=== PATIENT | male | born 1980 | race Caucasian/White ===

== ENCOUNTER 2017-02-07 03:43 | Inpatient (IN) | payer BC ==
--- NOTE | ~2017-02-07 | OP ---
Record Of Operation [facility] [address] [place]. [address] NAME: ASIA SIMONS : 78 STATUS : ADM Csaey PAT#: [id number] AGE: 36 ADM/REG DATE : 02/07/17 MR#: [id number] REPORT SERV DATE: 02/07/17 DICTATED BY: NATHAN LEON DATE: 02/07/17 REPORT STATUS : Draft TRANSCRIBED BY: MODL DATE: 02/07/17 DATE OF PROCEDURE: PREPROCEDURE DIAGNOSIS: Bleeding J-pouch. POSTPROCEDURE DIAGNOSIS: Bleeding from the revision anastomosis at the proximal afferent limb of the J-pouch. PROCEDURE: Flexible sigmoidoscopy with hemostasis using 3 clips and 1.5 mL of epinephrine injection. PROCEDURE IN DETAIL: The patient was taken to the endoscopy suite, positioned in the left lateral decubitus position. Informed consent was obtained followed by IV sedation delivered by AUTOMATIC MAINTAINER. Digital rectal exam was performed. Normal sphincter tone. No stenosis. The adult colonoscope was navigated without difficulty into the J-pouch lumen, which was full of clots and was irrigated. Most of the clots and dark blood were visualized in the distal aspect of the previous J-pouch. The scope was then navigated above to where the revision is located and here on the anastomosis, there was pulsatile bleeding. Initially, one clip was placed directly on the bleeding, but there continued to be ooze from that area. A clip was placed on either side and still had diffuse oozing, although there was no pulsatile bleeding. For this reason, a 1.5 mL of epinephrine was injected into the mucosa on either side, which controlled the bleeding completely. Both the proximal and distal aspects of the pouch with revision were irrigated until all clots were clear and anoscope was used in order to evacuate the large clots. There was no further bright red blood. He tolerated the procedure well. TAHIRA/ZULEIMA Ntahan Leon M.D. / [id number] CC: Lyndon Vincent M.D. J. Daniel Michael, M.D.
--- NOTE | ~2017-02-07 | HP ---
History And Physical [address] [address] NAME: ASIA SIMONS : 78 STATUS : ADM Casey PAT#: [id number] AGE: 36 ADM/REG DATE : 02/07/17 MR#: [id number] REPORT SERV DATE: 02/07/17 DICTATED BY: NATHAN LEON DATE: 02/07/17 REPORT STATUS : Draft TRANSCRIBED BY: MODL DATE: 02/07/17 DATE OF ADMISSION: 02/07/2017 REASON FOR ADMISSION: Recurrent bleeding from J-pouch. HISTORY OF PRESENT ILLNESS: Mr. Simons is a 36-year-old gentleman, who originally underwent total abdominal proctocolectomy with J-pouch in 1997 at [facility]. He has had several recurrent bleeds over the J-pouch and most recently underwent revision of the pouch on 12/07/[address] Rodriguez at [facility]. This was after he had been dilated three times by Dr. Vic Hammonds. The first two dilations went without incident, the third dilation led to bleeding that was not controlled. The patient started experiencing painless bright red blood per rectum. Yesterday, he had two bowel movements, which were about 300 mL of bright red blood. Before coming to the hospital where his hemoglobin was 13.3. He has had three bowel movements about the same size since then all bright red blood and his hemoglobin has gone from 13.3 to 12.4. He is not tachycardic or any dizziness. PAST MEDICAL HISTORY: Significant for ulcerative colitis and interstitial lung disease. PAST SURGICAL HISTORY: Total abdominal proctocolectomy with J-pouch 1997 in [facility]. He has also had a cholecystectomy and then the pouch revision 12/07/[address] Rodriguez at [facility]. ALLERGIES: IMURAN. MEDICATIONS: Entocort and Remicade. Please see the MAR for the rest of his medications. SOCIAL AND FAMILY HISTORY: Noncontributory. REVIEW OF SYSTEMS: As stated in the HPI, otherwise negative. PHYSICAL EXAMINATION: VITAL SIGNS: 98.4, 96, 18, 113/65. GENERAL: Alert, thin white male, in no acute distress. HEENT: Normocephalic, atraumatic. EOMI. PERRLA. Oropharynx is clear. NECK: Supple. Clear to auscultation bilaterally. HEART: Regular rate and rhythm. ABDOMEN: Soft, flat, nontender with appropriate surgical scars. RECTAL: Digital rectal exam was deferred for the time of flexible sigmoidoscopy. EXTREMITIES: Moves all extremities well. NEUROLOGIC: Cranial nerves 2 through 12 intact. SKIN: No rashes. LABORATORY DATA: White count is 8.6, H and H 13.3 and 40.3, platelets of 248. His hemoglobin is down to 12.4 now. Electrolytes within normal range. Creatinine is 1.06. LFTs are normal. Stool culture is normal. History And Physical [address] [place] [address] NAME: ASIA SIMONS : 78 STATUS : ADM Casey PAT#: [id number] AGE: 36 ADM/REG DATE : 02/07/17 MR#: [id number] REPORT SERV DATE: 02/07/17 DICTATED BY: NATHAN LEON DATE: 02/07/17 REPORT STATUS : Draft TRANSCRIBED BY: ZULEIMA DATE: 02/07/17 ASSESSMENT AND PLAN: Recurrent bleed from revise J-pouch. I will request records from [facility] as to the recent surgery that was performed due to the volume of blood and the quickly dropping hemoglobin. I would recommend endoscopic evaluation in the GI lab. I have discussed risks, benefits, and alternatives with the patient. He understands and is willing to proceed. TAHIRA/ZULEIMA Nathan Leon M.D. / [id number] CC: Lyndon Vincent M.D.
[2017-02-07 01:28] LABS: BASOPHILS 0.3 %; BASOPHILS ABSOLUTE 0.03 10/3/uL (0.0-0.16); EOSINOPHILS 1.3 %; EOSINOPHILS ABSOLUTE 0.11 10/3/uL (0.0-0.53); ER CBC TAT 0 Hrs 00 Mins; HEMOGLOBIN 13.3 g/dL (13.6-17.8); IMMATURE GRANULOCYTES 0.1 %; IMMATURE GRANULOCYTES ABSOLUTE 0.01 10/3/uL (0.0-0.11); LYMPHOCYTES 8.1 %; MEAN PLATELET VOLUME 10.3 fL (9.2-13.0); MONOCYTES 8.5 %; MONOCYTES ABSOLUTE 0.73 10/3/uL (0.21-1.20); NEUTROPHILS 81.7 %; NEUTROPHILS ABSOLUTE 7.01 10/3/uL (2.02-8.40); RED CELL COUNT 4.59 10/6/uL (4.7-6.1); WHITE BLOOD CELLS 8.6 10/3/uL (4.5-10.5)
[2017-02-07 01:29] LABS: HEMATOCRIT 40.3 % (40.0-51.0); MANUAL DIFF NO %; MEAN CORPUSCULAR VOLUME 87.8 fL (80-100); PLATELET COUNT 248 10/3/uL (150-400)
[2017-02-07 01:48] LABS: A/G RATIO 1.4 (0.7-1.9); ALBUMIN 3.8 G/DL (3.5-5.0); ALKALINE PHOSPHATASE 52 U/L (45-117); CALCIUM, SERUM 8.8 MG/DL (8.5-10.4); CHLORIDE, SERUM 107 MMOL/L (96-112); CO2 (CARBON DIOXIDE) 27 MMOL/L (24-34); CREATININE 1.06 MG/DL (0.70-1.30); GFR AFRICAN AMERICAN 103 ML/MIN (>=60); GFR NON AFRICAN AMERICAN 89 ML/MIN (>=60); GLOBULIN 2.8 G/DL (2.5-4.1); GLUCOSE, SERUM 107 MG/DL (60-99); SGOT(AST) 18 U/L (5-40); SGPT(ALT) 34 U/L (5-65); SODIUM, SERUM 143 MMOL/L (135-148); TOTAL BILIRUBIN 0.3 MG/DL (0-1.2); TOTAL PROTEIN 6.6 G/DL (6.0-8.5)
[2017-02-07 01:52] LABS: BUN (BLOOD UREA NITROGEN) 21 MG/DL (6-23)
[2017-02-07 01:57] LABS: PARTIAL THROMBO TIME 26.3 SEC (22.5-37.2); PROTIME (NOT ORD) 13.1 SEC (12.0-14.5)
[~2017-02-07 03:43] MED LIST: MULTIPLE VIT PO; PEPTO BISMOL262 MG OR; STRESSIRON PO
[2017-02-07] MEDS ORDERED: IFEREX 150 PO (05:23)
[2017-02-07] MEDS ORDERED: ENTOCORT3 PO (05:23)
[2017-02-07] MEDS ORDERED: MULTIPLE VIT PO (05:23)
[2017-02-07] MEDS ORDERED: VITAMIN B-121000 MC1 SL (05:24)
[2017-02-07] MEDS ORDERED: REMICADE IV (05:25)
[2017-02-07 10:16] LABS: HEMOGLOBIN 11.7 g/dL (13.6-17.8)
[2017-02-07 10:17] LABS: HEMATOCRIT 35.4 % (40.0-51.0)
[2017-02-07 13:25] LABS: HEMATOCRIT 34.2 % (40.0-51.0); HEMOGLOBIN 11.3 g/dL (13.6-17.8)
[2017-02-07 21:55] LABS: HEMATOCRIT 32.7 % (40.0-51.0); HEMOGLOBIN 10.7 g/dL (13.6-17.8)
[2017-02-08 06:49] LABS: CALCIUM, SERUM 8.3 MG/DL (8.5-10.4); CHLORIDE, SERUM 108 MMOL/L (96-112); CO2 (CARBON DIOXIDE) 27 MMOL/L (24-34); CREATININE 0.86 MG/DL (0.70-1.30); GFR AFRICAN AMERICAN 128 ML/MIN (>=60); GFR NON AFRICAN AMERICAN 111 ML/MIN (>=60); GLUCOSE, SERUM 92 MG/DL (60-99); POTASSIUM, SERUM 3.8 MMOL/L (3.5-5.3); SODIUM, SERUM 143 MMOL/L (135-148)
[2017-02-08 06:50] LABS: BUN (BLOOD UREA NITROGEN) 10 MG/DL (6-23)
[2017-02-08 08:38] LABS: BASOPHILS 0.7 %; BASOPHILS ABSOLUTE 0.03 10/3/uL (0.0-0.16); EOSINOPHILS 1.7 %; EOSINOPHILS ABSOLUTE 0.08 10/3/uL (0.0-0.53); HEMATOCRIT 33.6 % (40.0-51.0); HEMOGLOBIN 11.1 g/dL (13.6-17.8); IMMATURE GRANULOCYTES 0.4 %; IMMATURE GRANULOCYTES ABSOLUTE 0.02 10/3/uL (0.0-0.11); LYMPHOCYTES 14.5 %; LYMPHOCYTES ABSOLUTE 0.67 10/3/uL (0.67-4.30); MEAN CORPUSCULAR HEMOGLOB 28.8 pg (26.0-34.0); MEAN PLATELET VOLUME 10.4 fL (9.2-13.0); MONOCYTES 7.2 %; MONOCYTES ABSOLUTE 0.33 10/3/uL (0.21-1.20); NEUTROPHILS 75.5 %; NEUTROPHILS ABSOLUTE 3.48 10/3/uL (2.02-8.40); PLATELET COUNT 224 10/3/uL (150-400); RBC DISTRIBUTION WIDTH 16.1 % (12.0-16.0); RED CELL COUNT 3.86 10/6/uL (4.7-6.1)
[2017-02-08 08:39] LABS: WHITE BLOOD CELLS 4.6 10/3/uL (4.5-10.5)
[2017-02-08 13:05] LABS: HEMATOCRIT 35.6 % (40.0-51.0); HEMOGLOBIN 11.6 g/dL (13.6-17.8)
[2017-02-09 06:31] LABS: HEMOGLOBIN 9.4 g/dL (13.6-17.8)
[2017-02-09 06:32] LABS: HEMATOCRIT 28.8 % (40.0-51.0)
[2017-02-09 06:41] LABS: BUN (BLOOD UREA NITROGEN) 10 MG/DL (6-23); CALCIUM, SERUM 8.1 MG/DL (8.5-10.4); CHLORIDE, SERUM 110 MMOL/L (96-112); CO2 (CARBON DIOXIDE) 26 MMOL/L (24-34); CREATININE 0.88 MG/DL (0.70-1.30); GFR AFRICAN AMERICAN 127 ML/MIN (>=60); GFR NON AFRICAN AMERICAN 110 ML/MIN (>=60); GLUCOSE, SERUM 93 MG/DL (60-99); POTASSIUM, SERUM 3.7 MMOL/L (3.5-5.3); SODIUM, SERUM 143 MMOL/L (135-148)
[2017-02-09 12:35] LABS: HEMOGLOBIN 10.4 g/dL (13.6-17.8)
== END 2017-02-09 19:28 | disposition home or self-care (01) | DRG 920 ==
LOC: ER 03:43 → 4SO 04:44
PROVIDERS: Colon & Rectal Surgery; Hospitalist; Surgery
PROC: 0W3P8ZZ Control Bleeding in Gastrointestinal Tract, Via Natural or Artificial Opening Endoscopic (ICD-10-PCS; principal; 2017-02-07 11:52)
DX: K91.840 Postprocedural hemorrhage of a digestive system organ or structure following a digestive system procedure (principal); K51.80 Other ulcerative colitis without complications; J84.9 Interstitial pulmonary disease, unspecified; Z98.0 Intestinal bypass and anastomosis status; Y83.2 Surgical operation with anastomosis, bypass or graft as the cause of abnormal reaction of the patient, or of later complication, without mention of misadventure at the time of the procedure; Y92.009 Unspecified place in unspecified non-institutional (private) residence as the place of occurrence of the external cause; Z90.49 Acquired absence of other specified parts of digestive tract; Z88.8 Allergy status to other drugs, medicaments and biological substances; Z79.899 Other long term (current) drug therapy
CPT/HCPCS: 36415; 80048; 80053; 85014; 85018; 85025; 85610; 85730; 86850; 86900; 86901; 87045; 87046; 87046-59; 87328; 87329; 87493; 87493-59; 87899; 87899-59; 89055; 93005; 99285; A9270-GY; J2370